=== PATIENT | male | born 1960 | race Caucasian/White ===

== ENCOUNTER 2020-01-10 16:40 | Outpatient (CLI) | payer MEDICAID ==
[~2020-01-10 16:40] MED LIST: ALBU18HF2 INH; GABA800T11 PO; PER10325T PO; TIZA4TAB11 PO
[2020-01-10 16:57] LABS: BASOPHILS # (AUTO) 0.1 X10'3 (0-0.2); BASOPHILS % (AUTO) 0.8 % (0-1); EOSINOPHILS # (AUTO) 0.3 X10'3 (0-0.9); EOSINOPHILS % (AUTO) 3.9 % (0-6); HEMATOCRIT 37.1 % (42.0-52.0); HEMOGLOBIN 12.7 g/dl (14.0-17.9); LYMPHOCYTES # (AUTO) 3.2 X10'3 (1.1-4.8); LYMPHOCYTES % (AUTO) 41.3 % (21-51); MEAN CORPUSCULAR HEMOGLOBIN 32.4 PG (27.0-31.0); MEAN CORPUSCULAR HGB CONC 34.3 g/dL (33.0-36.5); MEAN CORPUSCULAR VOLUME 94.5 FL (78-98); MONOCYTES # (AUTO) 0.5 X10'3 (0-0.9); NEUTROPHILS # (AUTO) 3.6 X10'3 (1.8-7.7); PLATELET COUNT 221 X10'3 (140-440); RED BLOOD COUNT 3.92 X10'6 (4.70-6.10); RED CELL DISTRIBUTION WIDTH 14.6 % (11.5-14.5); WHITE BLOOD COUNT 7.6 X10'3 (4.5-11.0)
[2020-01-10 17:10] LABS: ALANINE AMINOTRANSFERASE 23 U/L (12-78); ALBUMIN 3.6 G/DL (3.4-5.0); ALBUMIN/GLOBULIN RATIO 1.2 (1.1-1.5); ALKALINE PHOSPHATASE 88 IU/L (46-116); ANION GAP 10 (8-16); ASPARTATE AMINO TRANSFERASE 34 U/L (10-37); BILIRUBIN,TOTAL 0.2 MG/DL (0.1-1.0); BLOOD UREA NITROGEN 22 MG/DL (7-18); C-REACTIVE PROTEIN 0.64 MG/DL (0.0-0.5); CALCIUM 8.9 MG/DL (8.5-10.1); CHLORIDE 107 MMOL/L (99-107); CREATININE 1.22 MG/DL (0.60-1.10); GLUCOSE 103 MG/DL (70-104); SODIUM 144 MMOL/L (135-145); TOTAL CARBON DIOXIDE 27.1 MMOL/L (24-32); TOTAL PROTEIN 6.7 G/DL (6.4-8.2); eGFR 61 ML/MIN
== END 2020-01-10 23:59 | disposition home or self-care (01) ==
LOC: LAB SPEC 16:40
PROVIDERS: ATTEND Internal Medicine
DX: M86.679 Other chronic osteomyelitis, unspecified ankle and foot (principal)
CPT/HCPCS: 36415; 80053; 85025; 85651; 86140

== ENCOUNTER 2020-02-10 09:16 | Outpatient (CLI) | payer MEDICAID ==
[2020-02-10] MEDS ORDERED: LIDOcaine 2% 5ml jelly ONE (09:51)
== END 2020-02-10 23:59 | disposition home or self-care (01) ==
LOC: WOUND CARE 09:16
PROVIDERS: ATTEND Nurse Practitioner Family
DX: T81.31XD Disruption of external operation (surgical) wound, not elsewhere classified, subsequent encounter (principal); L97.528 Non-pressure chronic ulcer of other part of left foot with other specified severity; E03.9 Hypothyroidism, unspecified; E78.5 Hyperlipidemia, unspecified; L84 Corns and callosities; M86.679 Other chronic osteomyelitis, unspecified ankle and foot; F17.200 Nicotine dependence, unspecified, uncomplicated; F12.10 Cannabis abuse, uncomplicated; Y83.8 Other surgical procedures as the cause of abnormal reaction of the patient, or of later complication, without mention of misadventure at the time of the procedure
CPT/HCPCS: 97597

== ENCOUNTER 2020-02-17 08:58 | Outpatient (CLI) | payer MEDICAID ==
[2020-02-17 10:20] LABS: BASOPHILS # (AUTO) 0.1 X10'3 (0-0.2); BASOPHILS % (AUTO) 0.5 % (0-1); EOSINOPHILS # (AUTO) 0.1 X10'3 (0-0.9); HEMATOCRIT 39.5 % (42.0-52.0); HEMOGLOBIN 13.2 g/dl (14.0-17.9); LYMPHOCYTES % (AUTO) 17.7 % (21-51); MEAN CORPUSCULAR HEMOGLOBIN 31.5 PG (27.0-31.0); MEAN CORPUSCULAR HGB CONC 33.4 g/dL (33.0-36.5); MEAN CORPUSCULAR VOLUME 94.2 FL (78-98); MEAN PLATELET VOLUME 7.1 FL (7.4-10.4); NEUTROPHILS % (AUTO) 71.8 % (42-75); PLATELET COUNT 324 X10'3 (140-440); RED BLOOD COUNT 4.19 X10'6 (4.70-6.10); RED CELL DISTRIBUTION WIDTH 14.5 % (11.5-14.5); WHITE BLOOD COUNT 11.1 X10'3 (4.5-11.0)
== END 2020-02-17 23:59 | disposition home or self-care (01) ==
LOC: WOUND CARE 08:58
PROVIDERS: ATTEND Nurse Practitioner Family
DX: T81.31XD Disruption of external operation (surgical) wound, not elsewhere classified, subsequent encounter (principal); L97.528 Non-pressure chronic ulcer of other part of left foot with other specified severity; E03.9 Hypothyroidism, unspecified; E78.5 Hyperlipidemia, unspecified; L84 Corns and callosities; M86.679 Other chronic osteomyelitis, unspecified ankle and foot; F17.200 Nicotine dependence, unspecified, uncomplicated; F12.10 Cannabis abuse, uncomplicated; Y83.8 Other surgical procedures as the cause of abnormal reaction of the patient, or of later complication, without mention of misadventure at the time of the procedure
CPT/HCPCS: 36415; 85025; G0463

== ENCOUNTER 2020-02-21 08:45 | Outpatient (CLI) | payer MEDICAID ==
[2020-02-21] MEDS ORDERED: LIDOcaine 2% 5ml jelly ONE (09:05)
== END 2020-02-21 23:59 | disposition home or self-care (01) ==
LOC: WOUND CARE 08:45
PROVIDERS: ATTEND Nurse Practitioner
DX: T81.31XD Disruption of external operation (surgical) wound, not elsewhere classified, subsequent encounter (principal); L97.522 Non-pressure chronic ulcer of other part of left foot with fat layer exposed; E03.9 Hypothyroidism, unspecified; E78.5 Hyperlipidemia, unspecified; L84 Corns and callosities; M86.679 Other chronic osteomyelitis, unspecified ankle and foot; F17.200 Nicotine dependence, unspecified, uncomplicated; F12.10 Cannabis abuse, uncomplicated; Y83.8 Other surgical procedures as the cause of abnormal reaction of the patient, or of later complication, without mention of misadventure at the time of the procedure
CPT/HCPCS: 11042; 87070; 87075; 87077; 87186

== ENCOUNTER 2020-05-08 10:25 | Day surgery (SDC) | payer MEDICAID ==
[~2020-05-08] VITALS: Ht 170.2 cm; Wt 84.3 kg
[2020-05-08] VITALS (10 sets, daily range): BP systolic 120–147; BP diastolic 69–91
[~2020-05-08 10:25] MED LIST changes: +ATOR20TA66 PO; +CEPH-585 PO; +HYDR-3964 PO; +LEVO50TA8 PO; +LIDOcaine 2% 5ml jelly ONE; +METH-798 PO; -PER10325T PO; -TIZA4TAB11 PO; +ceFAZolin 2gm in dextrose, iso 50 ML IV ONE; +famotidine 20mg tablet PO ONE; +ringers solution, lacted 1,000 ML IV SCH
[2020-05-08] MEDS ORDERED: ringers solution, lacted 1,000 ML IV SCH (13:20)
[2020-05-08] MEDS ORDERED: proCHLORperazine 10 MG/2 ml inj IV PRN (13:20)
[2020-05-08] MEDS ORDERED: morphine 2 MG/ML inj. syringe IV PRN (13:20)
[2020-05-08] MEDS ORDERED: ondansetron/PF 4mg/2ml inj IV PRN (13:20)
[2020-05-08] MEDS ORDERED: meperidine/PF 25mg/ml syringe IV PRN ×2 (13:20)
[2020-05-08] MEDS ORDERED: morphine 4 MG/ML inj SYRINge IV PRN (13:20)
[2020-05-08] MEDS ORDERED: sevoflurane 250ml liquid IH ONE (13:54)
[2020-05-08] MEDS ORDERED: fentaNYL/PF 50MCG/1 ML 2ML syringe ONE (13:59)
[2020-05-08] MEDS ORDERED: midazolam 1 mg/ML 2ml injection ONE (13:59)
[2020-05-08] MEDS ORDERED: bacitracin 15gm ointment TP ONE (14:19)
[2020-05-08] MEDS ORDERED: BUPIVAcaine/PF 2.5 mg/ml (0.25%) 30ml vial ONE (14:19)
[2020-05-08] MEDS ORDERED: propofol inj 20 ML IV ONE (14:44)
--- NOTE | 2020-05-08 14:50 | NUR ---
FROM OR ON [facility] ACCOMPANIED BY DR SOTO AND REPORT GIVEN BY ANESTHESIOLOGIST. VSS, IV PATENT. SLEEPING. TOES COOL BUT HAVE GOOD COLOR. LACIE, WIGGLES TOES ON COMMAND.
--- NOTE | 2020-05-08 14:50 | NUR ---
PATIENT IS ABLE TO MOVE LEFT TOES, CAP REFILL 2-3 SEC, WARM TO TOUCH. Addendum: 05/08/20 at 1807 by So Manning RN Amended: Links added.
[2020-05-08] MEDS: meperidine/PF 25mg/ml syringe IV PRN ×2 (15:12→15:40)
--- NOTE | 2020-05-08 15:20 | NUR ---
WOKE UP CO PAIN. MED WITH DEMEROL. VSS STABLE. SOMETIMES HR GOES INTO HIGH FORTIES. PT STATES IT IS USUALLY SLOW. DRESSING REMAINS THE SAME, CDI. TOES MOVE WELL, AND HAVE GOOD CAP REFILL.
[2020-05-08] MEDS ORDERED: oxyCODONE/APAP 10/325mg tablet PO ONE (15:55)
--- NOTE | 2020-05-08 16:12 | NUR ---
PATIENT STATES HE HAS TAKEN ACETAMINOPHEN BEFORE IN 20S, AND THE LIVER FAILED AFTER TAKING ABOUT 4 PILLS. HE HAS BEEN TAKING PERCOCET HOME MEDS AND HE HAS BEEN FINE WITH TAKING THEM. PERCOCET 10/325MG GIVEN AT 1610 FOR PAIN BEFORE DISCHARGE. Addendum: 05/08/20 at 1615 by So Manning RN Amended: Links added.
--- NOTE | 2020-05-08 16:20 | NUR ---
PATIENT WAS GIVEN PO PERCOCET 10/325MG BEFORE DISCHARGE FOR PAIN. HE STATES HIS PAIN LEVEL IS ABOUT 5/10 ON LEFT FOOT ALL THE TIME AT HOME AND IT DOES NOT GO DOWN LESS THAN 5/10. PATIENT IS NOT IN DISTRESS AT DISCHARGE, ABLE TO DRESS HIMSELF AND TRANSFER TO WHEEL CHAIR. PIV D/C'D FROM LEFT HAND 20G CATHETER INTACT. LIA WRAP AND DRESSING CDI ON LEFT FOOT. PATIENT C/O SLIGHT NAUSEA, PATIENT REFUSED TO TAKE NAUSEA MED. I HAVE REVIEWED D/C INSTRUCTIONS WITH PATIENT AND FAMILY AND THEY HAVE VERBALIZED UNDERSTANDING. PATIENT TRANSFERRED TO PRIVATE VEHICLE ON WHEEL CHAIR WITHOUT INCIDENTS TO BE D/C'D HOME WITH ALL BELONGINGS AND FAMILY GAVE TRANSPORT HOME. Addendum: 05/08/20 at 1655 by So Manning RN Amended: Links added.
--- NOTE | 2020-05-08 18:05 | NUR ---
PATIENT IS ABLE TO WIGGLE LEFT TOES, CAP REFILL OF 2-3 SEC, WARM TO TOUCH. Addendum: 05/08/20 at 1807 by So Manning RN Amended: Links added.
== END 2020-05-08 16:20 | disposition home or self-care (01) ==
LOC: PAS 10:25
PROVIDERS: ATTEND Podiatrist Foot & Ankle Surgery
DX: T84.84XA Pain due to internal orthopedic prosthetic devices, implants and grafts, initial encounter (principal); T81.31XA Disruption of external operation (surgical) wound, not elsewhere classified, initial encounter; Z98.890 Other specified postprocedural states; J45.909 Unspecified asthma, uncomplicated; G62.9 Polyneuropathy, unspecified; F17.290 Nicotine dependence, other tobacco product, uncomplicated; Z88.5 Allergy status to narcotic agent; Z88.8 Allergy status to other drugs, medicaments and biological substances; Z79.899 Other long term (current) drug therapy; Y83.8 Other surgical procedures as the cause of abnormal reaction of the patient, or of later complication, without mention of misadventure at the time of the procedure; Y92.89 Other specified places as the place of occurrence of the external cause
CPT/HCPCS: 13160; 20680; 82948; 87070; 87075; 87077; 87186; A6223; J2175; J2250; J2704; J3010; J3490; A4215; A4618; A6449; A7000; J7120

== ENCOUNTER 2020-05-08 19:00 | Emergency (ER) | payer MEDICAID ==
[~2020-05-08] VITALS: Ht 170.2 cm; Wt 81.8 kg
[~2020-05-08 19:00] MED LIST changes: -LIDOcaine 2% 5ml jelly ONE; -ceFAZolin 2gm in dextrose, iso 50 ML IV ONE; -famotidine 20mg tablet PO ONE; -ringers solution, lacted 1,000 ML IV SCH
[2020-05-08 19:03] VITALS: BP 128/89
== END 2020-05-08 20:03 | disposition home or self-care (01) ==
LOC: ER 19:00
DX: L76.22 Postprocedural hemorrhage of skin and subcutaneous tissue following other procedure (principal); Z98.890 Other specified postprocedural states; Z88.6 Allergy status to analgesic agent; Z88.5 Allergy status to narcotic agent; Z88.8 Allergy status to other drugs, medicaments and biological substances; Z79.899 Other long term (current) drug therapy; Y83.8 Other surgical procedures as the cause of abnormal reaction of the patient, or of later complication, without mention of misadventure at the time of the procedure
CPT/HCPCS: 99282

== ENCOUNTER 2020-07-24 10:13 | Day surgery (SDC) | payer MEDICAID ==
[2020-07-20 15:00] LABS: BASOPHILS # (AUTO) 0.1 X10'3 (0-0.2); BASOPHILS % (AUTO) 0.8 % (0-1); EOSINOPHILS # (AUTO) 0.2 X10'3 (0-0.9); EOSINOPHILS % (AUTO) 3.2 % (0-6); LYMPHOCYTES # (AUTO) 2.3 X10'3 (1.1-4.8); LYMPHOCYTES % (AUTO) 31.8 % (21-51); MEAN CORPUSCULAR HEMOGLOBIN 31.3 PG (27.0-31.0); MEAN CORPUSCULAR HGB CONC 33.6 g/dL (33.0-36.5); MEAN CORPUSCULAR VOLUME 92.9 FL (78-98); MEAN PLATELET VOLUME 7.1 FL (7.4-10.4); MONOCYTES # (AUTO) 0.6 X10'3 (0-0.9); MONOCYTES % (AUTO) 7.8 % (2-12); NEUTROPHILS # (AUTO) 4.1 X10'3 (1.8-7.7); NEUTROPHILS % (AUTO) 56.4 % (42-75); PRE OP HEMATOCRIT 43.3 % (42.0-52.0); PRE OP HEMOGLOBIN 14.6 g/dL (14.0-17.9); PRE OP PLATELET COUNT 286 X10'3 (140-440); RED BLOOD COUNT 4.66 X10'6 (4.70-6.10); RED CELL DISTRIBUTION WIDTH 14.7 % (11.5-14.5)
[2020-07-20 15:13] LABS: ALBUMIN 3.6 G/DL (3.4-5.0); ALBUMIN/GLOBULIN RATIO 0.8 (1.1-1.5); ALKALINE PHOSPHATASE 84 IU/L (46-116); BLOOD UREA NITROGEN 15 MG/DL (7-18); BUN/CREATININE RATIO 14.3 (5.4-32.0); CALCIUM 9.3 MG/DL (8.5-10.1); CHLORIDE 104 MMOL/L (99-107); CREATININE 1.05 MG/DL (0.60-1.10); PRE OP ALT 31 U/L (30-65); PRE OP ANION GAP 6 (8-16); PRE OP AST 27 U/L (10-37); PRE OP BILIRUB, TOTAL 0.4 MG/DL (0.0-1.0); PRE OP GLUCOSE 80 MG/DL (70-104); PRE OP POTASSIUM 3.8 MMOL/L (3.4-5.1); PRE OP SODIUM 138 MMOL/L (135-145); TOTAL CARBON DIOXIDE 27.8 MMOL/L (24-32); TOTAL PROTEIN 7.9 G/DL (6.4-8.2); eGFR 73 ML/MIN
[2020-07-24] VITALS (15 sets, daily range): BP systolic 119–161; BP diastolic 77–103
[~2020-07-24] VITALS: Ht 170.2 cm; Wt 89.0 kg
[~2020-07-24 10:13] MED LIST changes: -ALBU18HF2 INH; -CEPH-585 PO; +albuterol 2.5 MG/3 ML nebule NEB ONE; +cefazolin/dext.iso 2gm/100ml IV ONE; +famotidine 20mg tablet PO ONE
[2020-07-24] MEDS: ringers solution, lacted 1,000 ML IV SCH ×2 (11:19→17:57)
[2020-07-24] MEDS ORDERED: ringers solution, lacted 1,000 ML IV SCH (11:30)
[2020-07-24] MEDS ORDERED: morphine 2 MG/ML inj. syringe IV PRN ×2 (11:30→15:15)
[2020-07-24] MEDS ORDERED: meperidine/PF 25mg/ml syringe IV PRN ×3 (11:30)
[2020-07-24] MEDS ORDERED: proCHLORperazine 10 MG/2 ml inj IV PRN (11:30)
[2020-07-24] MEDS ORDERED: ondansetron/PF 4mg/2ml inj IV PRN ×2 (11:30→15:15)
[2020-07-24] MEDS ORDERED: morphine 4 MG/ML inj SYRINge IV PRN (11:30)
[2020-07-24] MEDS ORDERED: dexamethasone sod phosphate 10mg/ml inj ONE (14:00)
[2020-07-24] MEDS ORDERED: sevoflurane 250ml liquid IH ONE (14:00)
[2020-07-24] MEDS ORDERED: fentaNYL/PF 50MCG/1 ML 2ML syringe ONE (14:05)
[2020-07-24] MEDS ORDERED: MIDAZolam 1 MG/ML 5ML VIAL ONE (14:05)
[2020-07-24] MEDS ORDERED: ROPIVAcaine 0.5% (5mg/ml) 30ml vial ONE (14:06)
[2020-07-24] MEDS ORDERED: propofol inj 20 ML IV ONE (14:07)
[2020-07-24] MEDS ORDERED: LIDOcaine 1%/PF 5ML 10 MG/ML VIAL ONE (14:07)
[2020-07-24] MEDS ORDERED: BUPIVAcaine/PF 2.5mg/ml (0.25%) 10ml vial ONE (14:28)
[2020-07-24] MEDS ORDERED: magnesium hydroxide 30ml (MOM) UD suspension PO PRN (15:15)
[2020-07-24] MEDS ORDERED: mag hydrox/Alum hydrox/simeth 30ml oral suspension PO PRN (15:15)
[2020-07-24] MEDS ORDERED: acetaminophen 325mg tablet PO PRN (15:15)
[2020-07-24] MEDS ORDERED: HYDROcodone/acetaminophen 5mg/325mg tablet PO PRN (15:40)
--- NOTE | 2020-07-24 15:42 | NUR ---
Received from OR via [facility] , accompanied by Anesthesiologist MATEO and report given by Anesthesiolgist. PATIENT WITH 20GPIV IN LEFT UE RUNNING LR AT 100. DRESSING TO LLE THAT IS CDI. AWAITING RESOURCE MANAGER FORESTER TO MELLO SPLINT. PATIENT WITH + CAP REFILL. TOES PWD TO TOUCH. GATCHED FOOT OF BED UPON ARRIVAL FROM OR. Addendum: 07/24/20 at 1554 by Axel Garcia RN, RN Amended: Links added.
--- NOTE | 2020-07-24 17:00 | NUR ---
Received pt from [facility] via [facility]. Left foot with split cast, with naeem wrap. No bleeding noted. VSS. Oriented to room & POC. Call light in reach post op VS in progress.
--- NOTE | 2020-07-24 18:30 | NUR ---
Problems reprioritized. Patient report given, questions answered & plan of care reviewed with JOSE Begum.
--- NOTE | 2020-07-24 19:32 | NUR ---
Patient in room [facility]. I have received report from Barbra GARCIA and had the opportunity to ask questions and assume patient care.
[2020-07-24] MEDS ORDERED: gabapentin 400mg capsule PO SCH (21:00)
[2020-07-24] MEDS ORDERED: nicotine 7mg patch - 24hr TD ONE (21:00)
[2020-07-24] MEDS: HYDROcodone/acetaminophen 10/325mg tab PO PRN (21:50)
[2020-07-24] MEDS: cyclobenzaprine 10mg tablet PO SCH (21:50)
[2020-07-24] MEDS ORDERED: magnesium 4gm in 100ml NS 100 ML IV PRN (23:00)
[2020-07-24] MEDS ORDERED: magnesium Cl slow-release 64mg tablet PO PRN (23:00)
[2020-07-24] MEDS ORDERED: potassium Cl 40MEQ/1/2NS 520ml 520 ML IV PRN (23:00)
[2020-07-24] MEDS ORDERED: potassium Cl 20 mEq SR tablet PO PRN ×2 (23:00)
[2020-07-25 00:35] VITALS: BP 133/79
[2020-07-25 04:11] VITALS: BP 113/76
[2020-07-25] MEDS: ringers solution, lacted 1,000 ML IV SCH (04:20)
[2020-07-25 06:27] LABS: BASOPHILS % (AUTO) 0.4 % (0-1); EOSINOPHILS % (AUTO) 0.1 % (0-6); HEMATOCRIT 42.2 % (42.0-52.0); HEMOGLOBIN 14.4 g/dl (14.0-17.9); LYMPHOCYTES # (AUTO) 1.5 X10'3 (1.1-4.8); MEAN CORPUSCULAR HEMOGLOBIN 31.5 PG (27.0-31.0); MEAN CORPUSCULAR HGB CONC 34.1 g/dL (33.0-36.5); MEAN CORPUSCULAR VOLUME 92.2 FL (78-98); MEAN PLATELET VOLUME 7.5 FL (7.4-10.4); MONOCYTES # (AUTO) 0.9 X10'3 (0-0.9); MONOCYTES % (AUTO) 6.6 % (2-12); NEUTROPHILS # (AUTO) 11.3 X10'3 (1.8-7.7); NEUTROPHILS % (AUTO) 81.9 % (42-75); PLATELET COUNT 293 X10'3 (140-440); RED BLOOD COUNT 4.58 X10'6 (4.70-6.10); RED CELL DISTRIBUTION WIDTH 14.5 % (11.5-14.5); WHITE BLOOD COUNT 13.8 X10'3 (4.5-11.0)
[2020-07-25 06:51] LABS: ALANINE AMINOTRANSFERASE 24 U/L (12-78); ALBUMIN 3.1 G/DL (3.4-5.0); ALBUMIN/GLOBULIN RATIO 0.8 (1.1-1.5); ALKALINE PHOSPHATASE 74 IU/L (46-116); ANION GAP 8 (8-16); ASPARTATE AMINO TRANSFERASE 18 U/L (10-37); BILIRUBIN,TOTAL 0.5 MG/DL (0.1-1.0); BLOOD UREA NITROGEN 12 MG/DL (7-18); BUN/CREATININE RATIO 12.1 (5.4-32.0); CALCIUM 8.9 MG/DL (8.5-10.1); CHLORIDE 104 MMOL/L (99-107); CREATININE 0.99 MG/DL (0.60-1.10); GLUCOSE 107 MG/DL (70-104); PHOSPHORUS 3.6 MG/DL (2.3-4.5); SODIUM 138 MMOL/L (135-145); TOTAL CARBON DIOXIDE 26.4 MMOL/L (24-32); TOTAL PROTEIN 7.1 G/DL (6.4-8.2); eGFR 78 ML/MIN
[2020-07-25] MEDS ORDERED: levoTHYROXINE 25mcg tablet PO SCH (07:00)
[2020-07-25 07:20] VITALS: BP 112/73
[2020-07-25] MEDS: cyclobenzaprine 10mg tablet PO SCH ×2 (07:39→13:07)
[2020-07-25] MEDS: HYDROcodone/acetaminophen 10/325mg tab PO PRN ×2 (07:40→13:07)
[2020-07-25] MEDS ORDERED: atorvastatin 20mg tablet PO SCH (08:00)
[2020-07-25] MEDS ORDERED: K and/or MAG REPLACEMENT MC SCH (08:00)
[2020-07-25] MEDS ORDERED: nicotine 14mg patch - 24hr TD SCH (08:00)
[2020-07-25] MEDS ORDERED: NICO-631 TD (14:04)
[2020-07-25] MEDS ORDERED: CEPH250T PO (14:04)
== END 2020-07-25 15:15 | disposition home or self-care (01) ==
LOC: PAS 10:13 → SUR 3N 17:37 → PAS 07-25 15:15
PROVIDERS: ATTEND Podiatrist Foot & Ankle Surgery
DX: M86.8X7 Other osteomyelitis, ankle and foot (principal); G89.18 Other acute postprocedural pain; F17.210 Nicotine dependence, cigarettes, uncomplicated; J45.909 Unspecified asthma, uncomplicated; G89.29 Other chronic pain; G62.9 Polyneuropathy, unspecified; Z88.5 Allergy status to narcotic agent; Z88.8 Allergy status to other drugs, medicaments and biological substances; Z98.890 Other specified postprocedural states; Z20.822 Contact with and (suspected) exposure to COVID-19; Z79.899 Other long term (current) drug therapy
CPT/HCPCS: 28120; 36415; 64445; 64447; 73650; 76000; 76942; 80053; 82948; 83735; 84100; 84145; 84443; 85025; 97161; 97530; A6223; J1100; J2250; J2704; J3010; J3490; U0003; U0005; A4618; A6449; A7000; G0378; J2795; J7120

== ENCOUNTER → 2020-08-14 | Outpatient (CLI) | payer MEDICAID ==
[~2020-08-14] MED LIST changes: +CEPH250T PO; +NICO-631 TD; -albuterol 2.5 MG/3 ML nebule NEB ONE; -cefazolin/dext.iso 2gm/100ml IV ONE; -famotidine 20mg tablet PO ONE
[2020-08-14 20:02] LABS: BASOPHILS # (AUTO) 0.1 X10'3 (0-0.2); BASOPHILS % (AUTO) 0.8 % (0-1); EOSINOPHILS # (AUTO) 0.1 X10'3 (0-0.9); EOSINOPHILS % (AUTO) 1.6 % (0-6); HEMATOCRIT 43.7 % (42.0-52.0); HEMOGLOBIN 14.9 g/dl (14.0-17.9); LYMPHOCYTES # (AUTO) 2.3 X10'3 (1.1-4.8); LYMPHOCYTES % (AUTO) 29.1 % (21-51); MEAN CORPUSCULAR HEMOGLOBIN 31.9 PG (27.0-31.0); MEAN CORPUSCULAR VOLUME 93.7 FL (78-98); MEAN PLATELET VOLUME 8.4 FL (7.4-10.4); MONOCYTES # (AUTO) 0.4 X10'3 (0-0.9); MONOCYTES % (AUTO) 5.3 % (2-12); NEUTROPHILS # (AUTO) 4.9 X10'3 (1.8-7.7); NEUTROPHILS % (AUTO) 63.2 % (42-75); PLATELET COUNT 222 X10'3 (140-440); RED BLOOD COUNT 4.66 X10'6 (4.70-6.10); RED CELL DISTRIBUTION WIDTH 14.6 % (11.5-14.5); WHITE BLOOD COUNT 7.8 X10'3 (4.5-11.0)
[2020-08-14 20:21] LABS: ALANINE AMINOTRANSFERASE 34 U/L (12-78); ALBUMIN 3.7 G/DL (3.4-5.0); ALBUMIN/GLOBULIN RATIO 1.1 (1.1-1.5); ALKALINE PHOSPHATASE 82 IU/L (46-116); ANION GAP 11 (8-16); ASPARTATE AMINO TRANSFERASE 21 U/L (10-37); BILIRUBIN,TOTAL 0.3 MG/DL (0.1-1.0); BLOOD UREA NITROGEN 18 MG/DL (7-18); BUN/CREATININE RATIO 18.2 (5.4-32.0); C-REACTIVE PROTEIN 0.97 MG/DL (0.0-0.5); CALCIUM 8.7 MG/DL (8.5-10.1); CHLORIDE 106 MMOL/L (99-107); CREATININE 0.99 MG/DL (0.60-1.10); GLUCOSE 138 MG/DL (70-104); POTASSIUM 3.9 MMOL/L (3.5-5.1); SODIUM 140 MMOL/L (135-145); TOTAL CARBON DIOXIDE 22.6 MMOL/L (24-32); TOTAL PROTEIN 7.1 G/DL (6.4-8.2); eGFR 78 ML/MIN
== END | disposition home or self-care (01) ==
LOC: LAB SPEC 19:40
PROVIDERS: ATTEND Internal Medicine
DX: M86.679 Other chronic osteomyelitis, unspecified ankle and foot (principal)
CPT/HCPCS: 36415; 80053; 85025; 85651; 86140

== ENCOUNTER 2021-08-20 18:41 | Outpatient (CLI) | payer MEDICAID ==
[~2021-08-20 18:41] MED LIST changes: -CEPH250T PO
[2021-08-20 19:08] LABS: BASOPHILS # (AUTO) 0.1 X10'3 (0-0.2); EOSINOPHILS # (AUTO) 0.4 X10'3 (0-0.9); EOSINOPHILS % (AUTO) 4.3 % (0-6); HEMATOCRIT 44.7 % (42.0-52.0); HEMOGLOBIN 14.8 g/dl (14.0-17.9); LYMPHOCYTES # (AUTO) 2.9 X10'3 (1.1-4.8); LYMPHOCYTES % (AUTO) 34.8 % (21-51); MEAN CORPUSCULAR HGB CONC 33.2 g/dL (33.0-36.5); MEAN CORPUSCULAR VOLUME 93.3 FL (78-98); MEAN PLATELET VOLUME 8.2 FL (7.4-10.4); MONOCYTES # (AUTO) 0.5 X10'3 (0-0.9); MONOCYTES % (AUTO) 5.5 % (2-12); NEUTROPHILS # (AUTO) 4.5 X10'3 (1.8-7.7); NEUTROPHILS % (AUTO) 54.4 % (42-75); PLATELET COUNT 176 X10'3 (140-440); RED BLOOD COUNT 4.79 X10'6 (4.70-6.10); RED CELL DISTRIBUTION WIDTH 14.8 % (11.5-14.5); WHITE BLOOD COUNT 8.2 X10'3 (4.5-11.0)
[2021-08-20 19:11] LABS: ALANINE AMINOTRANSFERASE 38 U/L (12-78); ALBUMIN 3.5 G/DL (3.4-5.0); ALBUMIN/GLOBULIN RATIO 0.9 (1.1-1.5); ALKALINE PHOSPHATASE 87 IU/L (46-116); BILIRUBIN,TOTAL 0.5 MG/DL (0.1-1.0); BLOOD UREA NITROGEN 14 MG/DL (7-18); BUN/CREATININE RATIO 17.5 (5.4-32.0); CALCIUM 8.7 MG/DL (8.5-10.1); CHLORIDE 104 MMOL/L (99-107); GLUCOSE 85 MG/DL (70-104); TOTAL CARBON DIOXIDE 21.4 MMOL/L (24-32); TOTAL PROTEIN 7.3 G/DL (6.4-8.2); eGFR > 90 ML/MIN
[2021-08-20 19:13] LABS: C-REACTIVE PROTEIN 1.22 MG/DL (0.0-0.5); VANCOMYCIN,RANDOM 15.4 UG/ML
[2021-08-20 19:22] LABS: ANION GAP 8 (8-16); POTASSIUM 4.5 MMOL/L (3.5-5.1); SODIUM 133 MMOL/L (135-145)
[2021-08-20 19:27] LABS: ASPARTATE AMINO TRANSFERASE 37 U/L (10-37)
== END 2021-08-20 23:59 | disposition home or self-care (01) ==
LOC: LAB SPEC 18:41
PROVIDERS: ATTEND Internal Medicine
DX: M86.679 Other chronic osteomyelitis, unspecified ankle and foot (principal)
CPT/HCPCS: 36415; 80053; 80202; 85025; 86140

== ENCOUNTER 2024-05-03 08:48 | Outpatient (CLI) | payer MEDICAID ==
[~2024-05-03] VITALS: Ht 170.2 cm; Wt 84.8 kg
[~2024-05-03 08:48] MED LIST changes: +ALB0.5UD INH; +FURO20TA4 PO; +GABA-1555 PO; -GABA800T11 PO; +GUAI-425 PO; -NICO-631 TD; +PRED10TA23 PO
[2024-05-03] MEDS: albuterol 2.5 MG/3 ML nebule NEB ONE (09:30)
[2024-05-03 09:32] VITALS: PULSE 61; RESP 18; O2SAT 97
[2024-05-03 09:44] VITALS: PULSE 65; RESP 16
== END 2024-05-03 23:59 | disposition home or self-care (01) ==
LOC: RT 08:48
DX: J44.9 Chronic obstructive pulmonary disease, unspecified (principal); R06.02 Shortness of breath
CPT/HCPCS: 94060; 94760